=== PATIENT | male | born 1940 | race Caucasian/White ===

== ENCOUNTER → 2017-04-04 | Outpatient (CLI) | payer MEDICARE, OTHER ==
[~2017-04-04] MED LIST: ALLO300T PO; ATOR40TA PO; CHOLESTER PO; CHONDROITIN PO; COLC0.6T37 PO; DOXA2TAB9 PO; GLUCOSAMINE PO; MULT-516 PO; PENT100C2 PO; PSYL0.5215 PO; QUIN40TA7 PO; VERA240T86 PO; WARF10TA6 PO
== END | disposition home or self-care (01) ==
LOC: CFH 14:48
PROVIDERS: ATTEND Nurse Practitioner Family
DX: M25.562 Pain in left knee (principal)

== ENCOUNTER → 2017-10-01 | Outpatient (CLI) | payer MEDICARE, OTHER ==
[~2017-10-01] MED LIST changes: +QUIN40TA15 PO; -QUIN40TA7 PO
== END | disposition home or self-care (01) ==
LOC: CVU 12:59
PROVIDERS: ATTEND Internal Medicine
DX: I82.401 Acute embolism and thrombosis of unspecified deep veins of right lower extremity (principal)
CPT/HCPCS: 93971

== ENCOUNTER → 2018-08-20 | Outpatient (CLI) | payer MEDICARE, OTHER ==
[~2018-08-20] MED LIST changes: +WARF10TA43 PO; -WARF10TA6 PO
== END | disposition home or self-care (01) ==
LOC: CFH 14:42
PROVIDERS: ATTEND Internal Medicine Cardiovascular Disease
DX: I08.3 Combined rheumatic disorders of mitral, aortic and tricuspid valves (principal); I10 Essential (primary) hypertension; I48.91 Unspecified atrial fibrillation; E78.5 Hyperlipidemia, unspecified; Z86.73 Personal history of transient ischemic attack (TIA), and cerebral infarction without residual deficits
CPT/HCPCS: 93306

== ENCOUNTER → 2019-07-29 | Outpatient (CLI) | payer MEDICARE, OTHER ==
[~2019-07-29] MED LIST changes: +VERA240T10 PO; -VERA240T86 PO
== END | disposition home or self-care (01) ==
LOC: CFH 13:09
PROVIDERS: ATTEND Nurse Practitioner Family
DX: I08.1 Rheumatic disorders of both mitral and tricuspid valves (principal); I10 Essential (primary) hypertension; E78.5 Hyperlipidemia, unspecified; I50.30 Unspecified diastolic (congestive) heart failure; Z82.49 Family history of ischemic heart disease and other diseases of the circulatory system
CPT/HCPCS: 93306

== ENCOUNTER 2020-07-30 15:45 | Inpatient (IN) | payer MEDICARE, OTHER ==
[~2020-07-30] VITALS: Ht 182.9 cm; Wt 89.7 kg
--- NOTE | 2020-07-30 15:48 | NUR ---
STONE CUTTER: PT REFUSED TO STAND FOR WEIGHT
--- NOTE | 2020-07-30 15:57 | NUR ---
TY: [phone] (FRIEND)
--- NOTE | 2020-07-30 16:18 | NUR ---
PATIENT WHEELED BACK FROM TRIAGE WITH CHIEF C/O WEAKNESS WHILE WALKING AND INCREASED SOB. PATIENT STARTED FEELING MORE LETHARGIC THAN USUAL LAST SUNDAY, WAS SEEN BY PCP AND HAD BLOOD WORK DONE WHICH "SHOWED LOW IRON LEVELS." PATIENT STATES IT HAS BEEN DIFFICULT FOR HIM TO WALK AROUND HIS HOUSE, OR GO ON HIS DAILY WALKS BECAUSE HE FEELS SO EXHAUSTED. PATIENT DENIES COUGH, FEVER, NO N/V/D. PATIENT CONNECTED TO STRUCTURAL WELDER, NO SIGNS OF ACUTE DISTRESS, CALL LIGHT WITHIN REACH. OX SATURATION 98% ON RA.
--- NOTE | 2020-07-30 16:29 | NUR ---
ERMD AT BEDSIDE FOR EVALUATION.
[2020-07-30] MEDS ORDERED: SODIUM CHLORIDE FLUSH 10ML SYR IVF ONE (16:30)
--- NOTE | 2020-07-30 16:40 | NUR ---
LATE ENTRY DUE TO PATIENT CARE: 20 GAUGE IV STARTED RIGHT FA, BLOOD COLLECTED AND SENT TO LAB.
[2020-07-30] MEDS ORDERED: PANTOPRAZOLE 80 MG in SODIUM CHLORIDE 0.9% 100 ML IV SCH (17:00)
[2020-07-30] MEDS ORDERED: PANTOPRAZOLE 80 MG in SODIUM CHLORIDE 0.9% 50 ML IVPB ONE (17:00)
[2020-07-30 17:04] LABS: MEAN CORPUSCULAR HEMOGLOBIN 32.9 pg (27.5-34.5); MEAN PLATELET VOLUME 8.1 fL (7.4-10.4); RED BLOOD COUNT 4.51 x10^6/uL (4.38-5.82); RED CELL DISTRIBUTION WIDTH 15.1 % (9.4-14.8)
[2020-07-30 17:09] LABS: INTERNATIONAL NORMALIZED RATIO 4.66 (0.93-1.1)
[2020-07-30 17:12] LABS: ALANINE AMINOTRANSFERASE 72 U/L (12-78); ALBUMIN 4.1 g/dL (3.4-5.0); ANION GAP 10 mmol/L (5-15); CALCIUM 8.6 mg/dL (8.5-10.1); CHLORIDE 102 mmol/L (98-107); CREATININE 3.24 mg/dL (0.7-1.3); TOTAL IRON BINDING CAPACITY 231 mcg/dL (250-450)
[2020-07-30 17:15] LABS: ALKALINE PHOSPHATASE 73 U/L (45-117); BILIRUBIN,TOTAL 0.6 mg/dL (0.2-1.0); TOTAL PROTEIN 7.5 g/dL (6.4-8.2)
[2020-07-30 17:19] LABS: PROTHROMBIN TIME 48.7 Seconds (9.6-11.5)
[2020-07-30 17:21] LABS: % IRON SATURATION 39 % (20-55); IRON LEVEL 90 mcg/dL (65-175)
[2020-07-30] MEDS ORDERED: SODIUM CHLORIDE 0.9% 1,000 ML IV ONE (17:30)
[2020-07-30 17:35] LABS: MD YES; PLATELET COUNT 90 x10^3/uL (130-400)
--- NOTE | 2020-07-30 17:59 | NUR ---
20 gauge IV started left AC, NS hung at 100 mLs/hr, side rails up x2, patient connected to vitals machine, no signs of acute distress, call light within reach.
[2020-07-30 18:04] LABS: BAND#(MANUAL) 0.25 x10^3/uL; BANDS%(MANUAL) 9 % (0-7); EOS#(MANUAL) 0.03 x10^3/uL (0.0-0.4); EOS% (MANUAL) 1 % (1-7); LYMPH#(MANUAL) 0.48 x10^3/uL (1-3.4); LYMPHS% (MANUAL) 17 % (22-44); MONOS#(MANUAL) 0.17 x10^3/uL (0.3-2.7); MONOS% (MANUAL) 6 % (2-9); REACTIVE LYMPHS # (MANUAL) 0.08 x10^3/uL (0-0); REACTIVE LYMPHS % (MANUAL) 3 % (0-0); SEG#(MANUAL) 1.79 x10^3/uL (1.8-6.8); SEGS% (MANUAL) 64 % (42-75)
[2020-07-30 18:08] LABS: OVALOCYTES 1+
[2020-07-30 18:10] LABS: ANISOCYTOSIS 1+; CRENATED 1+
[2020-07-30 18:13] LABS: <PLATELET ESTIMATE> DECREASED; <PLT MORPHOLOGY> NORMAL PLT MORPH
--- NOTE | 2020-07-30 18:20 | NUR ---
PATIENT RESTING IN GURNEY, CONNECTED TO SERVICE ASSOCIATE, WATER PROVIDED TO PATIENT, SIDE RAILS UP X2, CALL LIGHT WITHIN REACH.
--- NOTE | 2020-07-30 18:26 | NUR ---
PATIENT TO IMAGING.
--- NOTE | 2020-07-30 18:52 | NUR ---
REPORT RECIEVED FROM ANASTASIA BARRERA. PT AT IMAGING
--- NOTE | 2020-07-30 18:58 | NUR ---
BEDSIDE REPORT GIVEN TO ANASTASIA MCNAIR FOR TRANSFER OF PATIENT CARE.
[2020-07-30] MEDS ORDERED: WARF7.5T46 PO (19:17)
[2020-07-30] MEDS ORDERED: CYCL5TAB PO (19:18)
[2020-07-30] MEDS ORDERED: ASCO500C10 PO (19:23)
[2020-07-30] MEDS ORDERED: SPIR25TA5 PO (19:23)
[2020-07-30] MEDS ORDERED: DILT180C53 PO (19:23)
[2020-07-30] MEDS ORDERED: VIT1CAPS11 PO (19:23)
[2020-07-30] MEDS ORDERED: BIMA2.5D EACHEYE (19:25)
[2020-07-30] MEDS ORDERED: POLYETHYLENE GLYCOL 17 GM PACKET PO PRN (19:30)
[2020-07-30] MEDS ORDERED: ONDANSETRON ODT 4 MG PO PRN (19:30)
[2020-07-30] MEDS ORDERED: BISACODYL 10 MG SUPP PR PRN (19:30)
[2020-07-30] MEDS ORDERED: ACETAMINOPHEN 325 MG TABLET PO PRN (19:30)
--- NOTE | 2020-07-30 19:46 | NUR ---
REPORT GIVEN TO ANASTASIA ESQUIVEL. PT GOING TO 426-1
[2020-07-30 20:06] LABS: TROPONIN I < 0.015 ng/mL (0.000-0.045)
[2020-07-30 20:29] VITALS: BP 105/70
[2020-07-30] MEDS: SODIUM CHLORIDE 0.9% 1,000 ML IV SCH (20:33)
[2020-07-30] MEDS: ATORVASTATIN 40 MG TABLET PO SCH (20:33)
[2020-07-31 00:17] VITALS: BP 107/69
[2020-07-31] MEDS: SODIUM CHLORIDE 0.9% 1,000 ML IV SCH ×3 (03:20→20:02)
[2020-07-31 05:52] LABS: BASOPHILS % (AUTO) 0 % (0-1); EOSINOPHILS % (AUTO) 0 % (1-7); LYMPHOCYTES % (AUTO) 21 % (22-44); MEAN CORPUSCULAR HEMOGLOBIN 32.5 pg (27.5-34.5); MEAN CORPUSCULAR HGB CONC 32.8 g/dL (33.2-36.2); MEAN PLATELET VOLUME 8.7 fL (7.4-10.4); MONOCYTES % (AUTO) 12 % (2-9); NEUTROPHILS % (AUTO) 67 % (42-75); PLATELET COUNT 81 x10^3/uL (130-400); RED BLOOD COUNT 4.12 x10^6/uL (4.38-5.82); RED CELL DISTRIBUTION WIDTH 15.4 % (9.4-14.8)
[2020-07-31 05:57] LABS: MD NO
[2020-07-31 06:05] LABS: ANION GAP 8 mmol/L (5-15); CALCIUM 7.8 mg/dL (8.5-10.1); CHLORIDE 108 mmol/L (98-107)
[2020-07-31 06:08] LABS: CREATININE 2.37 mg/dL (0.7-1.3)
[2020-07-31 06:57] LABS: INTERNATIONAL NORMALIZED RATIO 5.03 (0.93-1.1); PROTHROMBIN TIME 52.5 Seconds (9.6-11.5)
[2020-07-31 07:05] LABS: CHLORIDE,URINE RANDOM 69 mmol/L; POTASSIUM,URINE RANDOM 20 mmol/L; SODIUM,URINE RANDOM 75 mmol/L
[2020-07-31 07:08] LABS: MICROSCOPIC NOT IND
[2020-07-31 07:35] LABS: OSMOLALITY,URINE 723 mOsm/kg (500-850)
[2020-07-31 08:01] VITALS: BP 101/62
[2020-07-31] MEDS: SENNA/DOCUSATE TABLET PO SCH (09:38)
[2020-07-31] MEDS: MULTIVITAMIN 1 TABLET PO SCH (09:39)
[2020-07-31 14:04] VITALS: BP 94/58
[2020-07-31 19:40] VITALS: BP 116/76
[2020-07-31] MEDS: ATORVASTATIN 40 MG TABLET PO SCH (20:01)
[2020-08-01 00:22] VITALS: BP 109/73
[2020-08-01] MEDS: SODIUM CHLORIDE 0.9% 1,000 ML IV SCH ×2 (03:33→11:47)
[2020-08-01 06:41] VITALS: BP 109/74
[2020-08-01] MEDS: MULTIVITAMIN 1 TABLET PO SCH (08:00)
[2020-08-01] MEDS: SENNA/DOCUSATE TABLET PO SCH (08:08)
[2020-08-01 11:55] VITALS: BP 105/74
[2020-08-01 11:59] LABS: BASOPHILS % (AUTO) 0 % (0-1); EOSINOPHILS % (AUTO) 0 % (1-7); LYMPHOCYTES % (AUTO) 37 % (22-44); MEAN CORPUSCULAR HEMOGLOBIN 32.6 pg (27.5-34.5); MEAN CORPUSCULAR HGB CONC 32.9 g/dL (33.2-36.2); MEAN PLATELET VOLUME 8.5 fL (7.4-10.4); MONOCYTES % (AUTO) 14 % (2-9); NEUTROPHILS % (AUTO) 49 % (42-75); PLATELET COUNT 70 x10^3/uL (130-400); RED BLOOD COUNT 4.16 x10^6/uL (4.38-5.82); RED CELL DISTRIBUTION WIDTH 15.6 % (9.4-14.8)
[2020-08-01 12:01] LABS: MD NO
[2020-08-01 12:09] LABS: ALBUMIN 3.3 g/dL (3.4-5.0); ANION GAP 4 mmol/L (5-15); CALCIUM 7.5 mg/dL (8.5-10.1); CHLORIDE 113 mmol/L (98-107)
[2020-08-01 12:12] LABS: ALANINE AMINOTRANSFERASE 67 U/L (12-78); ALKALINE PHOSPHATASE 70 U/L (45-117); BILIRUBIN,TOTAL 0.5 mg/dL (0.2-1.0); INTERNATIONAL NORMALIZED RATIO 4.29 (0.93-1.1); PROTHROMBIN TIME 44.8 Seconds (9.6-11.5)
[2020-08-01 19:35] VITALS: BP 133/80
[2020-08-01] MEDS: TEMPLATE NON-FORMULARY MED. (Lumigan 1 DROP) EACHEYE SCH (21:00)
[2020-08-01] MEDS: ATORVASTATIN 40 MG TABLET PO SCH (21:21)
[2020-08-02 00:47] VITALS: BP 111/76
[2020-08-02 06:21] VITALS: BP 112/63
[2020-08-02] MEDS: SENNA/DOCUSATE TABLET PO SCH (07:43)
[2020-08-02] MEDS: MULTIVITAMIN 1 TABLET PO SCH (07:49)
[2020-08-02 11:19] VITALS: BP 126/88
[2020-08-02 12:43] LABS: INTERNATIONAL NORMALIZED RATIO 2.99 (0.93-1.1); PROTHROMBIN TIME 31.4 Seconds (9.6-11.5)
[2020-08-02 18:42] VITALS: BP 112/78
[2020-08-02] MEDS: ATORVASTATIN 40 MG TABLET PO SCH (21:42)
[2020-08-02] MEDS: TEMPLATE NON-FORMULARY MED. (Lumigan 1 DROP) EACHEYE SCH (21:44)
[2020-08-03 02:00] VITALS: BP 118/84
[2020-08-03 07:44] VITALS: BP 126/75
[2020-08-03] MEDS: MULTIVITAMIN 1 TABLET PO SCH (08:49)
[2020-08-03] MEDS: SENNA/DOCUSATE TABLET PO SCH (08:50)
[2020-08-03 09:27] LABS: INTERNATIONAL NORMALIZED RATIO 2.58 (0.93-1.1); PROTHROMBIN TIME 27.1 Seconds (9.6-11.5)
[2020-08-03] MEDS ORDERED: RIVA1TAB PO (11:24)
[2020-08-03] MEDS ORDERED: DILT30TA33 PO (11:26)
== END 2020-08-03 16:20 | disposition home health service (06) | DRG 300 ==
LOC: ED 16:49 → EDIP 19:41 → 4WST 20:12 → DCLOUNGE 08-03 16:11
PROVIDERS: ADMIT Internal Medicine; ATTEND Hospitalist
DX: I82.433 Acute embolism and thrombosis of popliteal vein, bilateral (principal); I13.0 Hypertensive heart and chronic kidney disease with heart failure and stage 1 through stage 4 chronic kidney disease, or unspecified chronic kidney disease; N17.9 Acute kidney failure, unspecified; I48.20 Chronic atrial fibrillation, unspecified; I50.32 Chronic diastolic (congestive) heart failure; D68.69 Other thrombophilia; E87.1 Hypo-osmolality and hyponatremia; D61.818 Other pancytopenia; E87.5 Hyperkalemia; D75.89 Other specified diseases of blood and blood-forming organs; N18.9 Chronic kidney disease, unspecified; Z79.01 Long term (current) use of anticoagulants; Z82.49 Family history of ischemic heart disease and other diseases of the circulatory system; Z86.73 Personal history of transient ischemic attack (TIA), and cerebral infarction without residual deficits; I82.443 Acute embolism and thrombosis of tibial vein, bilateral; I82.413 Acute embolism and thrombosis of femoral vein, bilateral
CPT/HCPCS: 36415; 71045; 78582; 80048; 80053; 80307; 81003; 82436; 82607; 82728; 83540; 83550; 83880; 83930; 83935; 84133; 84300; 84484; 85025; 85610; 86850; 86900; 93005; 93970; G0378; A9540; A9558; C9113; C9898; J7030

== ENCOUNTER → 2020-12-06 | Outpatient (CLI) | payer MEDICARE, OTHER ==
[~2020-12-06] MED LIST changes: +ASCO500C10 PO; +BIMA2.5D EACHEYE; +CYCL5TAB PO; +DILT180C53 PO; +DILT30TA33 PO; +RIVA1TAB PO; +SPIR25TA5 PO; +VIT1CAPS11 PO; +WARF7.5T46 PO
== END | disposition home or self-care (01) ==
LOC: CFH 09:00
PROVIDERS: ATTEND Internal Medicine Cardiovascular Disease
DX: I08.3 Combined rheumatic disorders of mitral, aortic and tricuspid valves (principal); E78.5 Hyperlipidemia, unspecified; I11.9 Hypertensive heart disease without heart failure; Z79.01 Long term (current) use of anticoagulants
CPT/HCPCS: 93306

== ENCOUNTER 2021-01-21 15:07 | Emergency (ER) | payer MEDICARE, OTHER ==
[~2021-01-21] VITALS: Ht 182.9 cm; Wt 98.6 kg
--- NOTE | 2021-01-21 15:27 | NUR ---
THIS IS A 80 YO M W/ C/O RLQ LEG PAIN, INCREASED REDNESS AND SWELLING. TOLD BY PCP TO COME TO ED FOR ABX FOR CELLULITIS. PT HYPERTENSIVE, OTHER VS WDL. RESP EVEN AND UNLABORED, NADN. AWAITING ED EVAL.
[2021-01-21 16:34] LABS: BASOPHILS % (AUTO) 2 % (0-1); EOSINOPHILS % (AUTO) 1 % (1-7); LYMPHOCYTES % (AUTO) 28 % (22-44); MEAN CORPUSCULAR HGB CONC 33.2 g/dL (33.2-36.2); MEAN PLATELET VOLUME 7.6 fL (7.4-10.4); MONOCYTES % (AUTO) 10 % (2-9); NEUTROPHILS % (AUTO) 59 % (42-75); PLATELET COUNT 136 x10^3/uL (130-400); RED CELL DISTRIBUTION WIDTH 16.8 % (9.4-14.8)
[2021-01-21 16:35] LABS: MD NO
[2021-01-21 16:40] LABS: ANION GAP 6 mmol/L (5-15); CHLORIDE 105 mmol/L (98-107); CREATININE 1.13 mg/dL (0.7-1.3)
[2021-01-21 17:00] VITALS: BP 170/96
--- NOTE | 2021-01-21 17:05 | NUR ---
PT AMBULATED TO PHONE ACROSS GOMEZ W/ A STEADY GAIT.
--- NOTE | 2021-01-21 17:34 | NUR ---
Patient given discharge instructions and they have confirmed that they understand the instructions. Patient ambulatory with steady gait.
== END 2021-01-21 17:35 | disposition home or self-care (01) ==
LOC: ED 17:29
DX: M79.671 Pain in right foot (principal); M79.89 Other specified soft tissue disorders; I10 Essential (primary) hypertension; I48.91 Unspecified atrial fibrillation
CPT/HCPCS: 36415; 80048; 85025; 99283

== ENCOUNTER 2021-06-13 09:08 | Outpatient (CLI) | payer MEDICARE, OTHER ==
[~2021-06-13 09:08] MED LIST changes: -VERA240T10 PO; +VERA240T28 PO
[2021-06-13 09:35] LABS: MICROSCOPIC NOT IND
[2021-06-13 09:38] LABS: BASOPHILS % (AUTO) 1 % (0-1); EOSINOPHILS % (AUTO) 2 % (1-7); LYMPHOCYTES % (AUTO) 30 % (22-44); MEAN CORPUSCULAR HEMOGLOBIN 31.9 pg (27.5-34.5); MEAN CORPUSCULAR HGB CONC 33.6 g/dL (33.2-36.2); MEAN PLATELET VOLUME 7.4 fL (7.4-10.4); MONOCYTES % (AUTO) 9 % (2-9); NEUTROPHILS % (AUTO) 58 % (42-75); PLATELET COUNT 129 x10^3/uL (130-400); RED BLOOD COUNT 4.18 x10^6/uL (4.38-5.82)
[2021-06-13 09:42] LABS: CALCIUM 8.5 mg/dL (8.5-10.1)
[2021-06-13 09:48] LABS: ALBUMIN 3.7 g/dL (3.4-5.0); ANION GAP 4 mmol/L (5-15); CALCIUM 8.7 mg/dL (8.5-10.1); CHLORIDE 106 mmol/L (98-107)
[2021-06-13 09:51] LABS: % IRON SATURATION 35 % (20-55); ALANINE AMINOTRANSFERASE 27 U/L (12-78); ALKALINE PHOSPHATASE 89 U/L (45-117); BILIRUBIN,TOTAL 1.2 mg/dL (0.2-1.0); CREATININE 1.03 mg/dL (0.7-1.3); IRON LEVEL 97 mcg/dL (65-175); TOTAL IRON BINDING CAPACITY 278 mcg/dL (250-450); TOTAL PROTEIN 6.6 g/dL (6.4-8.2)
[2021-06-13 09:53] LABS: CREATININE,URINE RANDOM 82.4 mg/dL
== END 2021-06-13 23:59 | disposition home or self-care (01) ==
LOC: LAB 09:08
PROVIDERS: ATTEND Internal Medicine Nephrology
DX: I12.9 Hypertensive chronic kidney disease with stage 1 through stage 4 chronic kidney disease, or unspecified chronic kidney disease (principal); N18.31 Chronic kidney disease, stage 3a; I48.91 Unspecified atrial fibrillation; M10.9 Gout, unspecified; I87.2 Venous insufficiency (chronic) (peripheral); R79.9 Abnormal finding of blood chemistry, unspecified
CPT/HCPCS: 36415; 80053; 81003; 82043; 82306; 82310; 82570; 82728; 83540; 83550; 83735; 83970; 84100; 84156; 84550; 85025